=== PATIENT | female | born 1955 | race Caucasian/White ===

== ENCOUNTER 2016-08-11 11:33 | Emergency (ER) | payer OTHER ==
[~2016-08-11] VITALS: Ht 170.2 cm; Wt 130.0 kg
[~2016-08-11 11:33] MED LIST: AMLO-147 PO; ATOR20TA38 PO; LORA10TA3 PO; LOSA50TA2 PO; MELO7.5O PO; OMEP20CA9 PO; TRIA1CAP70 PO
[2016-08-11 11:36] VITALS: Ht 170.2 cm; Wt 130.0 kg
[2016-08-11] MEDS ORDERED: ONDANSETRON 4 MG INJ IV STA (12:32)
[2016-08-11] MEDS ORDERED: HYDROmorphONE 1 MG/ML SYG IV STA ×2 (12:32→14:58)
[2016-08-11] MEDS ORDERED: SOD CHLORIDE 0.9% 1,000 ML IV STA (12:32)
[2016-08-11 12:49] LABS: ADD SCAN DIFF NO
[2016-08-11 12:52] LABS: BASOPHIL # 0.1 10^3/ul (0.0-0.1); BASOPHILS % 0.9 % (0.0-2.0); EOSINOPHILS # 0.3 10^3/ul (0.0-0.5); EOSINOPHILS % 3.4 % (0.0-7.0); HEMATOCRIT 40.3 % (37.0-47.0); HEMOGLOBIN 13.5 g/dl (12.0-16.0); LYMPHOCYTES # 2.1 10^3/ul (0.8-2.9); LYMPHOCYTES % 25.7 % (15.0-51.0); MEAN CORPUSCULAR HEMOGLOBIN 29.5 pg (29.0-33.0); MEAN CORPUSCULAR HGB CONC 33.5 g/dl (32.0-37.0); MEAN PLATELET VOLUME 10.1 fl (7.4-10.4); MONOCYTE # 0.9 10^3/ul (0.3-0.9); MONOCYTES % 11.2 % (0.0-11.0); NEUTROPHIL # 4.8 10^3/ul (1.6-7.5); NEUTROPHILS % 58.6 % (39.0-77.0); PLATELET COUNT 311 10^3/UL (140-415); RED BLOOD COUNT 4.58 10^6/ul (4.20-5.40); RED CELL DISTRIBUTION WIDTH 13.2 % (11.5-14.5); WHITE BLOOD COUNT 8.1 10^3/ul (4.8-10.8)
[2016-08-11 13:05] LABS: ADD UMIC NO; URINE BILIRUBIN (Dip) NEGATIVE (NEGATIVE); URINE BLOOD (Dip) NEGATIVE (NEGATIVE); URINE COLOR YELLOW (YELLOW); URINE GLUCOSE (Dip) NEGATIVE (NEGATIVE); URINE KETONES (Dip) NEGATIVE (NEGATIVE); URINE LEUKOCYTE ESTERASE (Dip) NEGATIVE (NEGATIVE); URINE NITRITE (Dip) NEGATIVE (NEGATIVE); URINE TOTAL PROTEIN (Dip) NEGATIVE (NEGATIVE); URINE UROBILINOGEN (Dip) 0.2 E.U./dL (0.1-1.0)
[2016-08-11 13:06] LABS: ALBUMIN 4.1 g/dl (3.3-4.9)
[2016-08-11 13:07] LABS: POTASSIUM 4.3 mmol/L (3.5-5.1)
[2016-08-11 13:09] LABS: BILIRUBIN,INDIRECT 0.4 mg/dl (0-1.1); BILIRUBIN,TOTAL 0.4 mg/dl (0.2-1.3); CREATININE 0.76 mg/dl (0.44-1.00)
[2016-08-11 13:10] LABS: ALBUMIN/GLOBULIN RATIO 1.13; CALCIUM 9.7 mg/dl (8.4-10.2); TOTAL PROTEIN 7.7 g/dl (6.1-8.1)
[2016-08-11 13:15] VITALS: TEMP 98.1
--- NOTE | 2016-08-11 14:25 | RADRPT ---
PROCEDURE: XR Hip. CLINICAL INDICATION: Left hip pain TECHNIQUE: AP and frog lateral views of the left hip were performed. COMPARISON: None. FINDINGS: There is normal mineralization and alignment. No fracture or osseous lesion is identified. There are normal joints without evidence of acute fracture or dislocation. The soft tissues are unremarkable. No radiopaque foreign body is identified. IMPRESSION: 1. Unremarkable left hip x-ray series. 2. No acute fracture identified. RPTAT: PP .Vazquez Santamaria MD, MD Date Time Electronically viewed and signed by .Vazquez Santamaria MD, on 08/11/2016 14:25 .B/
--- NOTE | 2016-08-11 14:41 | RADRPT ---
PROCEDURE: CT abdomen and pelvis without contrast. CLINICAL INDICATION: Abdominal Pain TECHNIQUE: CT scan of the abdomen and pelvis without contrast was performed. The patient was scan yohana without intravenous contrast. 3-D coronal reformatted images were obtained from the axial [facility] e images. The calculated radiation dose measures 1948 mGy centimeters. The CTDI measures 29 mGy COMPARISON: None. FINDINGS: CT abdomen: Limited images through the lung bases appear clear. The liver is normal in size and density, without intrahepatic biliary dilatation. The spleen and p ancreas are unremarkable noncontrast appearance. The gallbladder appears within normal limits. The adrenal glands are symmetric and normal. The kidneys appear normal in size and contour. No renal calculus or hydronephrosis is visualized. There is no ascites or retroperitoneal lymphadenopathy. There is mild aortic and branch vessel calci fication. There is scattered colonic diverticulosis, without visualized diverticulitis. The appendix appears n ormal. CT pelvis: The urinary bladder appears normal. The pelvic organs are within normal limits. There is no abnorm al pelvic mass or adenopathy. There is no pelvic free fluid. Visualized osseous structures appear unremarkable. IMPRESSION: 1. No visualized renal calculi or hydronephrosis. The appendix is seen and appears within normal l imits. 2. A few scattered colonic diverticuli, without visualized diverticulitis. 3. Mild aortic and branch vessel calcification. RPTAT: DD . .Jose E Marshall MD, MD Date Time Electronically viewed and signed by .Jose E Marshall MD, MD on 08/11/2016 14:40 .T/
[2016-08-11] MEDS ORDERED: HYDR-902 PO (14:57)
[2016-08-11] MEDS ORDERED: ONDA4TAB14 PO (14:57)
--- NOTE | 2016-08-11 15:11 | ERD ---
ER Documentation Chief Complaint Date/Time DATE: 08/11/16 TIME: 15:08 Chief Complaint lt side lower back pain since yesterday with dizziness HPI Patient is a 61-year-old female with hypertension who presents with abdominal pain. She has left-sided abdominal pain and left-sided flank pain. The symptoms started yesterday. She also felt dizzy. The pain is sharp and strong in nature. The pain comes and goes. She has had no recent falls. She has pain with movement. She denies fevers. She tried tramadol for pain. Upon review of old medical records this is the patient's fourth visit to the ER since 2010. Her primary doctor is Dr. Ward. ROS All systems reviewed and are negative except as per history of present illness. Medications Home Meds Active Scripts Ondansetron (Ondansetron Odt) 4 Mg Tab.rapdis, 4 MG PO Q6H Y for NAUSEA AND/OR VOMITING, #10 TAB Prov:ARCELIA MINA MD 08/11/16 Hydrocodone/Acetaminophen ([place] 10-325 Tablet) 1 Each Tablet, 1 TAB PO Q6H Y for PAIN, #12 TAB Prov:ARCELIA MINA MD 08/11/16 Reported Medications Meloxicam* (Meloxicam*) 7.5 Mg/5 Ml Oral.susp, 15 MG PO DAILY, ML 10/10/14 Atorvastatin Calcium* (Atorvastatin Calcium*) 20 Mg Tablet, 20 MG PO HS, TAB 10/10/14 Loratadine* (Loratadine*) 10 Mg Tablet, 10 MG PO DAILY, TAB 10/10/14 Losartan Potassium* (Cozaar*) 50 Mg Tablet, 50 MG PO DAILY 02/20/12 Omeprazole* (Prilosec*) 20 Mg Capsule.dr, 20 MG PO DAILY 10/26/11 Triamterene/Hydrochlorothiazid (Triamterene-Hctz 37.5-25 Mg Cp) 1 Cap Capsule, 1 CAP PO 10/26/11 Amlodipine Besylate* (Amlodipine Besylate*) 10 Mg Tablet, PO DAILY 02/25/11 Allergies Allergies: Coded Allergies: ibuprofen (Unverified Allergy, Unknown, SOB,RASH, 10/10/14) PMhx/Soc History of Surgery: Yes (RT FOOT SX, C SECTION X1, RIGTH KNEE REPLACEMENT) Anesthesia Reaction: No Hx Neurological Disorder: No Hx Respiratory Disorders: Yes (ASTHMA) Hx Psychiatric Problems: No Hx Miscellaneous Medical Probl: Yes (HTN, R KNEE SX) Hx Alcohol Use: No Hx Substance Use: No Hx Tobacco Use: No Smoking Status: Never smoker FmHx Family History: No diabetes Physical Exam Vitals Vital Signs Date Time Temp Pulse Resp B/P Pulse Ox O2 Delivery O2 Flow Rate FiO2 08/11/16 14:19 60 16 112/68 96 Room Air 08/11/16 13:15 98.1 61 22 94/68 98 Room Air 08/11/16 11:36 98.1 69 18 136/68 98 Physical Exam Const: Moderate distress secondary to pain Head: Atraumatic Eyes: Normal Conjunctiva ENT: Normal External Ears, Nose and Mouth. Neck: Full range of motion..~ No meningismus. Resp: Clear to auscultation bilaterally Cardio: Regular rate and rhythm, no murmurs Abd: Soft, left lower quadrant pain without rebound or guarding Skin: No petechiae or rashes Back: No midline or flank tenderness Ext: No cyanosis, or edema Neur: Awake and alert Psych: Normal Mood and Affect Result Diagram: 08/11/16 1235 08/11/16 1235 Results 24 hrs Laboratory Tests Test 08/11/16 12:35 08/11/16 12:36 White Blood Count 8.110^3/ul Red Blood Count 4.5810^6/ul Hemoglobin 13.5g/dl Hematocrit 40.3% Mean Corpuscular Volume 88.0fl Mean Corpuscular Hemoglobin 29.5pg Mean Corpuscular Hemoglobin Concent 33.5g/dl Red Cell Distribution Width 13.2% Platelet Count 62320^3/UL Mean Platelet Volume 10.1fl Neutrophils % 58.6% Lymphocytes % 25.7% Monocytes % 11.2% Eosinophils % 3.4% Basophils % 0.9% Nucleated Red Blood Cells % 0.0/100WBC Neutrophils # 4.810^3/ul Lymphocytes # 2.110^3/ul Monocytes # 0.910^3/ul Eosinophils # 0.310^3/ul Basophils # 0.110^3/ul Nucleated Red Blood Cells # 0.010^3/ul Sodium Level 141mmol/L Potassium Level 4.3mmol/L Chloride Level 102mmol/L Carbon Dioxide Level 28mmol/L Anion Gap 15 Blood Urea Nitrogen 14mg/dl Creatinine 0.76mg/dl Glucose Level 127mg/dl Calcium Level 9.7mg/dl Total Bilirubin 0.4mg/dl Direct Bilirubin 0.00mg/dl Indirect Bilirubin 0.4mg/dl Aspartate Amino Transf (AST/SGOT) 20IU/L Alanine Aminotransferase (ALT/SGPT) 22IU/L Alkaline Phosphatase 78IU/L Total Protein 7.7g/dl Albumin 4.1g/dl Globulin 3.60g/dl Albumin/Globulin Ratio 1.13 Lipase 50U/L Urine Color YELLOW Urine Clarity CLEAR Urine pH 5.5 Urine Specific [place] 1.025 Urine Ketones NEGATIVE Urine Nitrite NEGATIVE Urine Bilirubin NEGATIVE Urine Urobilinogen 0.2 E.U./dL Urine Leukocyte Esterase NEGATIVE Urine Hemoglobin NEGATIVE Urine Glucose NEGATIVE% Urine Total Protein NEGATIVE Current Medications Medications (Trade) Dose Ordered Sig/Jake Route PRN Reason Start Time Stop Time Status Last Admin Dose Admin Sodium Chloride (NS) 1,000 ml @ 1,000 mls/hr Q1H STAT IV 08/11/16 12:32 08/11/16 13:31 DC 08/11/16 12:58 Hydromorphone HCl (Dilaudid) 1 mg ONCE STAT IV 08/11/16 12:32 08/11/16 12:33 DC 08/11/16 12:59 Ondansetron HCl (Zofran Inj) 4 mg ONCE STAT IV 08/11/16 12:32 08/11/16 12:33 DC 08/11/16 12:59 Hydromorphone HCl (Dilaudid) 1 mg ONCE STAT IV 08/11/16 14:58 08/11/16 14:59 DC Procedures/MDM X-ray Hip 2V Interpreted by me: Bones: No fracture Joints: No dislocation Foreign body: None PROCEDURE: CT abdomen and pelvis without contrast. CLINICAL INDICATION: Abdominal Pain TECHNIQUE: CT scan of the abdomen and pelvis without contrast was performed. The patient was scanned without intravenous contrast. 3-D coronal reformatted images were obtained from the axial source images. The calculated radiation dose measures 1948 mGy centimeters. The CTDI measures 29 mGy COMPARISON: None. FINDINGS: CT abdomen: Limited images through the lung bases appear clear. The liver is normal in size and density, without intrahepatic biliary dilatation. The spleen and pancreas are unremarkable noncontrast appearance. The gallbladder appears within normal limits. The adrenal glands are symmetric and normal. The kidneys appear normal in size and contour. No renal calculus or hydronephrosis is visualized. There is no ascites or retroperitoneal lymphadenopathy. There is mild aortic and branch vessel calcification. There is scattered colonic diverticulosis, without visualized diverticulitis. The appendix appears normal. CT pelvis: The urinary bladder appears normal. The pelvic organs are within normal limits. There is no abnormal pelvic mass or adenopathy. There is no pelvic free fluid. Visualized osseous structures appear unremarkable. IMPRESSION: 1. No visualized renal calculi or hydronephrosis. The appendix is seen and appears within normal limits. 2. A few scattered colonic diverticuli, without visualized diverticulitis. 3. Mild aortic and branch vessel calcification. RPTAT: DD . .Arcelia Marshall MD, MD Date Time Electronically viewed and signed by .Arcelia Marshall MD, MD on 08/11/2016 14:40 Patient is a 61-year-old female who presents with abdominal pain and flank pain. The patient had a full workup including laboratory studies, urinalysis, x -ray of the left hip, and CT scan of the abdomen and pelvis. Her workup was benign. The patient has no sign of diverticulitis, kidney stone, pyelonephritis , or bowel obstruction. I believe outpatient management is appropriate. However the patient will need close follow-up with her primary doctor tomorrow morning for reevaluation. She can return sooner for any worsening symptoms. She was given a prescription for [place] and Zofran for symptomatic relief. Departure Diagnosis: Primary Impression: Flank pain Condition: Fair Patient Instructions: Flank Pain, Uncertain Cause Additional Instructions: Visite a leona ayala para un EXAMEN.Regrese a estas instalaciones si no se mejora maryan esperbamos o maryan le terrimos. ARCELIA MINA MD Aug 11, 2016 15:11
[2016-08-11 15:24] VITALS: BP 115/54; PULSE 60; RESP 16
== END 2016-08-11 15:21 | disposition home or self-care (01) ==
LOC: E/R 11:33
DX: R10.9 Unspecified abdominal pain (principal); I10 Essential (primary) hypertension; J45.909 Unspecified asthma, uncomplicated; Z96.651 Presence of right artificial knee joint
CPT/HCPCS: 36415; 73510; 74176; 80053; 81003; 83690; 85025; 96374; 96375; 96376; J1170; J2405; J7030; Z7502

== ENCOUNTER 2017-07-03 15:42 | Emergency (ER) | END 2017-07-03 19:58 | disposition home or self-care (01) ==